=== PATIENT | male | born 1945 | race Caucasian/White ===

== ENCOUNTER → 2016-10-02 | Outpatient (CLI) | payer OTHER | LOC: BRMIMAGING 11:15 | PROVIDERS: ATTEND Surgery | DX: Z03.89 Encounter for observation for other suspected diseases and conditions ruled out (principal) | CPT/HCPCS: 76882-PO ==

== ENCOUNTER → 2017-09-24 | Outpatient (CLI) | payer OTHER | LOC: FIMAGING 10:37 → EDSTATUS 10:39 | PROVIDERS: ATTEND Internal Medicine | DX: Q74.2 Other congenital malformations of lower limb(s), including pelvic girdle (principal); M11.251 Other chondrocalcinosis, right hip; M11.252 Other chondrocalcinosis, left hip ==

== ENCOUNTER 2017-12-07 15:50 | Inpatient (IN) | payer OTHER ==
--- NOTE | 2017-12-07 16:13 | CPEKG ---
Heart Rate: 64 RR Interval: 938 P-R Interval: 172 QRSD Interval: 90 QT Interval: 412 QTC Interval: 425 P Dell: -9 QRS Dell: -1 T Wave Dell: 35 EKG Severity - NORMAL ECG - EKG Impression: SINUS RHYTHM Electronically Signed By: Dano Zimmerman 07-Dec-2017 17:48:14
[2017-12-07 16:15] LABS: PLATELET COUNT 160 10^3/uL (150-400)
[2017-12-07 16:24] LABS: INR 0.99 (0.83-1.16); PROTIME(PATIENT) 13.3 SEC (12.0-15.0)
--- NOTE | 2017-12-07 16:38 | EDPHY ---
H & P Stated Complaint: L hip pain Time Seen by Provider: 12/07/17 16:35 HPI/ROS: CHIEF COMPLAINT: Left hip pain HISTORY OF PRESENT ILLNESS: The patient presents to the ED with complaints of left hip pain and inability to ambulate since falling on his stairs prior to arrival. The patient reports prior history of a nonsurgical hip and pelvic fracture. The patient does have a history of Parkinson's disease and diabetes. The patient denies any associated head injury, neck pain or additional complaints. He is not anticoagulated. REVIEW OF SYSTEMS: A comprehensive 10 point review of systems is otherwise negative aside from elements mentioned in the history of present illness. Source: Patient Exam Limitations: No limitations - Personal History Current Tetanus/Diphtheria Vaccine: Unsure Current Tetanus Diphtheria and Acellular Pertussis (TDAP): Unsure - Medical/Surgical History Hx Asthma: No Hx Chronic Respiratory Disease: No Hx Diabetes: Yes Hx Cardiac Disease: No Hx Renal Disease: No Hx Cirrhosis: No Hx Alcoholism: No Hx HIV/AIDS: No Hx Splenectomy or Spleen Trauma: No Other PMH: R HIP/PELVIC FX, Diabetes Type 1, Parkensons, myasthenia gravis - Social History Smoking Status: Former smoker - Physical Exam Exam: General Appearance: Alert, no distress Head: Atraumatic Eyes: Pupils equal, round, reactive ENT, Mouth: No hemotympanum, no oral trauma Neck: Nontender, trachea midline Respiratory: No chest wall tender, subcutaneous air, lungs clear bilaterally Cardiovascular: Regular rate and rhythm Abdomen: Abdomen is soft and nontender, pelvis stable Skin: No lacerations, No abrasion Back: No midline T/L/S pain Extremities: Left hip shortened and externally rotated Neurological: A&Ox3, normal motor function, normal sensory exam Constitutional: Initial Vital Signs Temperature (C) 36.8 C 12/07/17 15:58 Heart Rate 64 12/07/17 15:58 Respiratory Rate 18 12/07/17 15:58 Blood Pressure 133/59 H 12/07/17 15:58 O2 Sat (%) 94 12/07/17 15:58 O2 Delivery Mode Room Air Allergies/Adverse Reactions: No Known Allergies Allergy (Verified 12/07/17 15:57) Home Medications: Medication Instructions Recorded Lantus 01/29/10 METFORMIN HCL 01/29/10 PRILOSEC 01/29/10 SIMVASTATIN 01/29/10 SYNTHROID 01/29/10 Matthew Mercedes U-100 09/26/15 Medical Decision Making - Diagnostics EKG Interpretation: EKG: Complete interpretation has been separately recorded in the [facility] archive. Summary impression: Sinus rhythm, rate 64 Imaging Results: Imaging Impressions Chest X-Ray 12/07/17 15:58 Impression: No evidence for fat embolism. 2. Left Hip Technique: AP pelvis and frog-leg left hip. Clinical Indications: Pain post fall down stairs Findings: There is an acute, complex, mildly displaced intertrochanteric fracture of the left hip. The distal femur is medially displaced by approximately 1 cm. There is no significant angulation. The femoral head remains normally located in the acetabulum. The included SI joints, pubic symphysis and right hip joint are intact. There is bilateral acetabular labral chondrocalcinosis. Impression: Complex intertrochanteric fracture. Hip X-Ray 12/07/17 15:58 Impression: No evidence for fat embolism. 2. Left Hip Technique: AP pelvis and frog-leg left hip. Clinical Indications: Pain post fall down stairs Findings: There is an acute, complex, mildly displaced intertrochanteric fracture of the left hip. The distal femur is medially displaced by approximately 1 cm. There is no significant angulation. The femoral head remains normally located in the acetabulum. The included SI joints, pubic symphysis and right hip joint are intact. There is bilateral acetabular labral chondrocalcinosis. Impression: Complex intertrochanteric fracture. ED Course/Re-evaluation: The patient presents to the ED for evaluation of left hip trauma following a mechanical fall. He arrives neurologically intact without evidence of a head or neck injury. The patient was taken for plain film of the left hip which demonstrates a intertrochanteric femur fracture. The patient had an IV established. He received IV morphine for pain control. Consultation was made with Dr. Chu Fuentes from Orthopedic surgery. Dr. Fuentes will discuss surgical treatment for the patient's fracture and consult on the patient. Consultation was made with Dr. Ramirez from the hospitalist service. The patient will be admitted to the Ortho med surg unit in anticipation of surgery tomorrow morning. I re-evaluated the patient at 5:00 p.m.. He is resting comfortably in the room. Differential Diagnosis: Differential diagnosis considered includes hip fracture, hip dislocation, pelvic fracture, neurovascular injury, head injury - Data Points Laboratory Results: Laboratory Results 12/07/17 16:10 12/07/17 16:10 12/07/17 12/07/17 12/07/17 16:10 16:10 16:10 WBC 6.21 10^3/uL 10^3/uL (3.80-9.50) RBC 3.98 10^6/uL L 10^6/uL (4.40-6.38) Hgb 14.0 g/dL g/dL (13.7-17.5) Hct 39.0 % L % (40.0-51.0) MCV 98.0 fL fL (81.5-99.8) MCH 35.2 pg H pg (27.9-34.1) MCHC 35.9 g/dL g/dL (32.4-36.7) RDW 13.2 % % (11.5-15.2) Plt Count 160 10^3/uL 10^3/uL (150-400) MPV 9.3 fL fL (8.7-11.7) Neut % (Auto) 80.0 % H % (39.3-74.2) Lymph % (Auto) 10.0 % L % (15.0-45.0) Osborne % (Auto) 7.6 % % (4.5-13.0) Eos % (Auto) 1.3 % % (0.6-7.6) Baso % (Auto) 0.8 % % (0.3-1.7) Nucleat RBC Rel Count 0.0 % % (0.0-0.2) Absolute Neuts (auto) 4.97 10^3/uL 10^3/uL (1.70-6.50) Absolute Lymphs (auto) 0.62 10^3/uL L 10^3/uL (1.00-3.00) Absolute Monos (auto) 0.47 10^3/uL 10^3/uL (0.30-0.80) Absolute Eos (auto) 0.08 10^3/uL 10^3/uL (0.03-0.40) Absolute Basos (auto) 0.05 10^3/uL 10^3/uL (0.02-0.10) Absolute Nucleated RBC 0.00 10^3/uL 10^3/uL (0-0.01) Immature Gran % 0.3 % % (0.0-1.1) Immature Gran # 0.02 10^3/uL 10^3/uL (0.00-0.10) PT 13.3 SEC SEC (12.0-15.0) INR 0.99 (0.83-1.16) Sodium 141 mEq/L mEq/L (135-145) Potassium 3.9 mEq/L mEq/L (3.5-5.2) Chloride 110 mEq/L mEq/L (97-110) Carbon Dioxide 24 mEq/l mEq/l (22-31) Anion Gap 7 mEq/L L mEq/L (8-16) BUN 17 mg/dL mg/dL (7-23) Creatinine 0.8 mg/dL mg/dL (0.7-1.3) Estimated GFR > 60 Glucose 101 mg/dL H mg/dL (70-100) Calcium 9.5 mg/dL mg/dL (8.5-10.4) Departure - Departure Disposition: [facility] Inpatient Acute Clinical Impression: Fracture, intertrochanteric, left femur, Myasthenia gravis Condition: Good Referrals: Patient,NotPresent [Primary Care Provider] - As per Instructions
[2017-12-07] MEDS ORDERED: LORazepam 2 MG/ML INJ IVP PRN (17:16)
[2017-12-07] MEDS ORDERED: PROMETHAZINE HCL 25 MG/ML INJ IVP PRN (17:16)
[2017-12-07] MEDS ORDERED: HYDROmorphone HCL/NS 0.5 MG/ML SYR IVP PRN (17:16)
[2017-12-07] MEDS ORDERED: D50W 25 GM/50 ML VIAL IVP PRN (17:24)
[2017-12-07] MEDS ORDERED: NS 1,000 ML IV SCH (17:30)
[2017-12-07] MEDS: HYDROCODONE/APAP 5/325 TAB PO PRN ×2 (18:36→22:52)
[2017-12-07] MEDS: INSULIN LISPRO 100 UNIT/ML SC SCH (18:37)
[2017-12-07] MEDS: metFORMIN HCL 500 MG TAB PO SCH (18:37)
--- NOTE | 2017-12-07 20:46 | GCON ---
[f rep st] CONSULTATION CHIEF COMPLAINT: Left hip pain. HISTORY OF PRESENT ILLNESS: The patient is a 72-year-old gentleman who presented to the emergency de partment with complaints of left hip pain and inability to ambulate. He fell on his basement stairs, does not recall the exact events of what happened. He denied any loss of consciousness or striking his head. He does have a history of type 1 diabetes, and recent diagnosis of Parkinson disease. He has no other focal complaints. He does not take any anticoagulation. PAST MEDICAL HISTORY: Type 1 diabetes, myasthenia gravis, and Parkinson disease. He also has histor y of a previous pelvic fracture to his right hip. PAST SURGICAL HISTORY: None. MEDICATIONS: He takes Lantus, metformin, Prilosec, simvastatin. ALLERGIES: No known drug allergies. SOCIAL HISTORY: Denies any tobacco or alcohol use. REVIEW OF SYSTEMS: Negative for current chest pain, shortness of breath, belly pain, back pain, numb ness, tingling. He does have positive review for left knee pain. He denies any foot or ankle or low er extremity pain. PHYSICAL EXAMINATION: GENERAL: This is a healthy gentleman who is pleasant and cooperative with exa mination. HEENT: Normocephalic, atraumatic. Focused examination of the left lower extremity reveal s this to be short and externally rotated. No range of motion is assessed at either the hip or knee currently. He has no tenderness to the calf and lower extremities. Intact plantar flexion, dorsifle xion, EHL function. Sensation is intact to light touch throughout both lower extremities. RADIOGRAPHS: AP lateral of his pelvis and left hip demonstrate an intertrochanteric femur fracture w hich is comminuted with a short oblique segment. There is displacement of approximately 1 cm. He darden s very vertically oriented hips bilaterally. There is no other mass or lesions noted. IMPRESSION: Left intertrochanteric femur fracture. TREATMENT PLAN: I have outlined the surgical procedure, risks, benefits, and alternatives at length. He understands this and wishes to proceed. Written consent will be signed and placed in patient's chart. I have outlined that he will be touchdown weightbearing for approximately 2 weeks, then 50% w eightbearing restrictions until bony union. He does have some questions regarding his insurance. I have referred him to the brand planner for discussion of this in the morning. /[id number]/MODL
--- NOTE | 2017-12-07 20:56 | GHP ---
[f rep st] HISTORY AND PHYSICAL DATE OF ADMISSION: 12/07/2017 CHIEF COMPLAINT: Left hip pain and left hip fracture. HISTORY OF PRESENT ILLNESS: The patient is a pleasant gentleman with a past medical history of myast henia gravis, currently treated with azathioprine, and recent diagnosis of Parkinson disease, yet to start on medical therapy, who presented to the [facility] Emergency Room via EMS on 0 12/07/2017 after sustaining a fall at home onto his left hip. He was unable to get up after the fall and EMS was activated and came to the home and brought him to the emergency room where he was found t o have a fracture of the left hip on x-ray. Orthopedic Surgery was consulted and the tentative plan is for surgery tomorrow morning. The patient states he did not have any syncopal episodes at the fal l, he simply lost his footing and fell down onto the left hip. Over the prior months, he has not not iced any shortness of breath or chest pain symptoms. He has no prior history of cardiac or lung dise ase. His initial ECG was unremarkable. His hemoglobin was within normal limits at 14 and creatinine was normal at 0.8. PAST MEDICAL HISTORY: 1. Parkinson disease. 2. Myasthenia gravis. 3. Diabetes mellitus type 2. 4. Hyperlipidemia. 5. Hypothyroidism. PAST SURGICAL HISTORY: 1. Hernia repair. 2. Ankle surgery. MEDICATIONS: This medication list is taken from a list provided by the patient's . 1. Lantus 15 units twice a day. 2. Humalog sliding scale. 3. Metformin 500 mg twice a day. 4. Flomax 0.4 mg nightly. 5. Simvastatin 40 mg daily. 6. Omeprazole 40 mg daily. 7. Levothyroxine 0.15 mg daily. 8. Myrbetriq 25 mg daily. 9. Azathioprine 50 mg 3 times a day. 10. Aspirin 325 mg daily. ALLERGIES: No known drug allergies. FAMILY HISTORY: Mother and father are both . Father in his 90s secondary to complicati ons from Alzheimer dementia. Mother in her 90s as well due to congestive heart failure. SOCIAL HISTORY: Patient is a nonsmoker. He is . They have 1 daughter. personnel records clerk or po wer of state attorney would be his or daughter, if unavailable. CODE STATUS: Reviewed and patient is a full code status. REVIEW OF SYSTEMS: CONSTITUTIONAL: No complaints of any fevers or chills. ENT: No recent upper re spiratory illnesses. CARDIOVASCULAR: No complaints of recent chest pain, syncopal episodes, or palp itations. RESPIRATORY: No complaints of shortness of breath or productive cough. GI: No nausea or vomiting. No diarrhea, constipation, or focal abdominal pain. : No report of any difficulty wit h urination. NEUROLOGIC: No complaints of headaches or focal weakness. Recent diagnosis of [place] on disease. HEMATOLOGIC: No history of any deep vein thrombosis or pulmonary embolism. PSYCHIATRIC : No history of anxiety or depression. ENDOCRINE: Positive for diabetes and hypothyroidism. SKIN: No concerning skin rashes. MUSCULOSKELETAL: No focal joint pains other than the left hip. PHYSICAL EXAM: VITAL SIGNS: Temperature 36.8, blood pressure 133/59, heart rate 64, respirations 18 , saturating 94% on room air. GENERAL: Patient is awake, alert, conversant, no acute distress. SEVERO NT: Extraocular movements intact. Pupils equal. No scleral icterus is noted. Mohamud facies apprecia dada. NECK: Supple. No adenopathy. No thyroid enlargement noted. CHEST: Clear to auscultation. Normal respiratory effort. HEART: Regular rate and rhythm. No murmurs. ABDOMEN: Soft, nontender, nondistended. : No Hussein catheter in place. EXTREMITIES: No significant pitting edema. NEUROL OGIC: Cranial nerves 2-12 appear grossly intact. No significant rigidity appreciated. Strength 5/5 in upper extremities. Lower extremity strength testing limited by left fracture. LABORATORY DATA: White blood cell count 6, hemoglobin 14, platelets 160. Sodium 140, potassium 3.9, chloride 110, bicarb 24, BUN 17, creatinine 0.8, glucose of 101. INR 0.199. IMAGING: Chest x-ray showed no acute cardiopulmonary disease. There was no evidence of fat emboli p resent. ASSESSMENT/PLAN: 1. Left hip pain, currently reasonably well controlled in the emergency room, but he is noting some pain starting to develop. I have orders for as needed hydrocodone as well as IV Dilaudid for pain co ntrol overnight. 2. Left hip fracture. Tentatively planning for surgery tomorrow morning. His electrocardiogram is without concerning finding. His hemoglobin is within normal limits as well as his creatinine. There have been no symptoms over the prior months suggestive of active cardiopulmonary disease so I recomm end proceeding to the OR as scheduled tomorrow. I have made him n.p.o. after midnight and will hold any heparin past midnight as well. Dr. Fuentes has been consulted by the emergency room for orthopedi c consultation. 3. Myasthenia gravis. Will continue with current azathioprine at 50 mg 3 times a day. The patient' s states that he was last treated with prednisone approximately year and half ago. I do not thi nk stress dose steroids are indicated at this time considering it has been a year and a half since hi s last dose of prednisone, but if hypotension develops, consider starting stress dose steroids for 2 to 3 days. 4. Parkinson disease. The patient has upcoming neurologic consultation to discuss medical therapy. 5. Diabetes mellitus type 2. I will reduce his Lantus dosing to 10 units twice a day, continue with Humalog sliding scale at low intensity dosing. 6. Hyperlipidemia. Will anticipate continuing statin therapy. 7. Hypothyroidism. Continue levothyroxine 0.15 mg daily. 8. Benign prostatic hypertrophy. Continue Flomax 0.4 mg daily. 9. Deep venous thrombosis prophylaxis. We will anticipate Lovenox once hemostasis postoperatively. 10. Disposition: I will admit him under inpatient status. /[id number]/MODL
[2017-12-07] MEDS: INSULIN GLARGINE 100 UNITS/ML UNIT SC SCH (21:39)
[2017-12-07] MEDS: MULTIVITAMINS 1 EACH TAB PO SCH (21:40)
[2017-12-07] MEDS: CALCIUM CARB W/VIT D 500 MG TAB PO SCH (21:40)
[2017-12-07] MEDS: azaTHIOprine 50 MG TAB PO SCH (21:40)
[2017-12-07] MEDS: OMEGA-3 FATTY ACIDS 1,000 MG CAP PO SCH (21:40)
[2017-12-07] MEDS ORDERED: HEPARIN 5,000 UNIT/0.5 ML SYR SC SCH (22:00)
[2017-12-08] MEDS: LEVOTHYROXINE 150 MCG TAB PO SCH (05:18)
[2017-12-08 05:38] LABS: PLATELET COUNT 135 10^3/uL (150-400)
[2017-12-08 05:43] LABS: INR 1.06 (0.83-1.16)
[2017-12-08] MEDS: metFORMIN HCL 500 MG TAB PO SCH ×2 (08:30→20:44)
[2017-12-08] MEDS: TAMSULOSIN HCL 0.4 MG CAP PO SCH (08:30)
[2017-12-08] MEDS: ATORVASTATIN CALCIUM 20 MG TAB PO SCH (08:30)
[2017-12-08] MEDS: HYDROCODONE/APAP 5/325 TAB PO PRN ×3 (08:30→21:57)
[2017-12-08] MEDS: PANTOPRAZOLE SODIUM 40 MG TAB PO SCH (08:30)
[2017-12-08] MEDS: INSULIN LISPRO 100 UNIT/ML SC SCH ×3 (08:31→20:43)
[2017-12-08] MEDS: azaTHIOprine 50 MG TAB PO SCH ×3 (08:31→21:50)
[2017-12-08] MEDS: INSULIN GLARGINE 100 UNITS/ML UNIT SC SCH ×2 (08:32→21:56)
[2017-12-08] MEDS: NON-FORMULARY NEW DRUG (Mirabegron [Myrbetriq] 25 MG) PO SCH (08:33)
[2017-12-08] MEDS ORDERED: Herbals/Supplements -Info Only PO SCH (09:00)
[2017-12-08] MEDS ORDERED: PANTOPRAZOLE SODIUM 40 MG TAB PO SCH (09:00)
[2017-12-08] MEDS ORDERED: ceFAZolin 2 GM/SWFI 2 GM/20 ML SYR IVP ONE (14:00)
[2017-12-08] MEDS ORDERED: ceFAZolin 2 GM/DEXTROSE 100 ML IV ONE (14:00)
--- NOTE | 2017-12-08 14:23 | HOSPPROG ---
Hospitalist Progress Note Assessment/Plan: Subjective Follow-up on left hip pain No acute events overnight. Patient states his pain has been reasonably well controlled. He can tell however when the pain medication is wearing off. The tentative plan is for surgery this afternoon. Objective Vital signs as detailed below Physical exam General-patient awake alert conversant no acute distress. Cardiac-regular rate and rhythm no murmurs appreciated Lungs-clear auscultation with normal respiratory effort. Abdomen-soft nontender nondistended. -no Hussein catheter in place Extremities-no significant pitting edema Musculoskeletal-no calf pain with palpation Labs as detailed below Assessment and plan 1. Left hip pain-his pain appears reasonably well controlled with the current hydrocodone and acetaminophen as well as IV fentanyl as needed. I will go ahead and start a bowel regimen anticipating that he for narcotic medications after surgery and potential for constipation. 2. Left hip fracture-tentative plan is for surgery this afternoon. 3. Diabetes mellitus type 2- continue current metformin and Lantus insulin along with sliding scale. I reduced his Lantus from 15 units twice a day to 10 units twice a day here in the hospital. 4. Hyperlipidemia-patient is on simvastatin at home. We replaced this with atorvastatin here in the hospital. 5. Hypothyroidism-continue current levothyroxine dosing. 6. Parkinson's disease-patient reports that he was recently diagnosed with Parkinson's disease. He is not started on medical therapy yet. He does have upcoming followup consultation with Dr. Efren Matthews to discuss medical therapy. 7. Myasthenia gravis-continue with current as a fibrin. 8. DVT prophylaxis-anticipate starting after hemostasis after surgery. 9. Disposition- PT and OT consult placed. Will see how he does postoperatively and look at placement options with the case management. Objective: Vital Signs Temp Pulse Resp BP Pulse Ox 36.9 C 61 16 112/61 94 12/08/17 11:36 12/08/17 11:36 12/08/17 11:36 12/08/17 11:36 12/08/17 11:36 Laboratory Results 12/08/17 05:23 12/08/17 05:23 12/07/17 12/08/17 12/09/17 05:59 05:59 05:59 Intake Total 1225 Output Total 750 1200 Balance 475 -1200 PT 14.0 SEC (12.0-15.0) 12/08/17 05:23 INR 1.06 (0.83-1.16) 12/08/17 05:23 ICD10 Worksheet Patient Problems: Problems Problem Status Onset Fracture, intertrochanteric, left femur Acute Myasthenia gravis Acute
--- NOTE | 2017-12-08 15:09 | ASMTCMCOM ---
CM Note CM Note Notes: Chart reviewed. 72 tear old male s/p femur fracture had surgery pending at 1pm. The had called insurance [employer] who told her that the surgeon was not covered under plan despite an emergent admission and fracture, Call placed to Dr. Fuentes and our insurance financial services Angela. Per Angela likely to be covered under emergent care. Patient's recalled insurance for verification purposes and was told again that they would need to find an in network provider or be faced with payment . Our research and development director spent nearly 2 hours on the phone with insurance [employer] ([employer]) to ascertain coverage. Per Tiffanie Waldron It Communications Manager of escalation cases stated due to the nature of the emergency that they will provide coverage as if the services were in network regardless of where the patient is located. The patient's Erika is greatly relieved. Dr. Fuentes notified of this information and will proceed with emergent surgical intervention within the hour. This CM had also placed a call to [facility] on behalf of the to present the possibility of need for other orthopedic service and Wilfredo Briscoe responded. He asked that Dr. Fuentes page him if we were unable to find resolution to conflict. CM to follow. Plan: Needs to be determined Date Signed: 12/08/2017 03:08 PM Electronically Signed By:Emily Barraza RN
[2017-12-08] MEDS ORDERED: BUPIVACAINE/EPI 0.5% 30 ML SDV ONE ×2 (16:05→16:26)
--- NOTE | 2017-12-08 16:07 | ASMTCMCOM ---
CM Note CM Note Notes: Spoke with Cary in OR to clarify questions r/t insurance issues. Informed her of information contained in previous note. She is to relay all pertinent information to Dr. Fuentes who has now scheduled patient's surgery for 5:30 pm. CM to follow. Date Signed: 12/08/2017 04:06 PM Electronically Signed By:Emily Barraza RN
[2017-12-08] MEDS ORDERED: LR 1,000 ML IV ONE (16:15)
[2017-12-08] MEDS ORDERED: ceFAZolin 2 GM/SWFI 20 ML SYR IVP ONE (16:39)
--- NOTE | 2017-12-08 17:09 | PDANEPAE ---
ANE History of Present Illness left it hip frx ANE Past Medical History - Cardiovascular History Hx Hypertension: No Hx Arrhythmias: No Hx Chest Pain: No Hx Coronary Artery / Peripheral Vascular Disease: No Hx CHF / Valvular Disease: No Hx Palpitations: No - Pulmonary History Hx COPD: No Hx Asthma/Reactive Airway Disease: No Hx Recent Upper Respiratory Infection: No Hx Oxygen in Use at Home: No Hx Sleep Apnea: No Sleep Apnea Screening Result - Last Documented: Negative - Endocrine History Hx Diabetes: Yes Hypothyroid: Yes Hyperthyroid: No Obesity: no - Renal History Hx Renal Disorders: No - Liver History Hx Hepatic Disorders: No - Neurological & Psychiatric Hx Neurological / Psychiatric History Comment: myasthenia gravis in remission x 3 yrs - Chronic Pain History Chronic Pain: No ANE Review of Systems Review of systems is: negative Review of Systems: - Exercise capacity Exercise capacity: >=4 METS ANE Patient History - Allergies Allergies/Adverse Reactions: No Known Allergies Allergy (Verified 12/07/17 15:57) - Home Medications Home Medications: Aspirin EC [Aspirin EC 81 mg (*)] 81 mg PO DAILY 12/07/17 [Last Taken 12/07/17] Calcium Carb W/Vit D [Calcium Carb W/Vit D 500/200 (*)] 500 mg PO HS 12/07/17 [ Last Taken 12/06/17] Herbals/Supplements -Info Only 1 ea PO DAILY 12/07/17 [Last Taken Unknown] Insulin Glargine [Lantus 100 UNITS/ML (*)] 15 units SC BID 12/07/17 [Last Taken 12/07/17 09:00] Insulin Lispro [Humalog] 0 unit SQ TIDMEAL 12/07/17 [Last Taken 12/07/17] Levothyroxine [Synthroid 150 mcg (*)] 150 mcg PO DAILY@07 12/07/17 [Last Taken 12/07/17] Mirabegron [Myrbetriq] 25 mg PO DAILY 12/07/17 [Last Taken 12/07/17] Multivitamins [Multivitamin (*)] 1 each PO HS 12/07/17 [Last Taken 12/06/17] Fertile-3 Fatty Acids [Fish Oil 1000 mg (*)] 1,000 mg PO HS 12/07/17 [Last Taken 12/06/17] Omeprazole Magnesium 20 mg PO BID 12/07/17 [Last Taken 12/07/17 09:00] Simvastatin [Zocor] 40 mg PO DAILY 12/07/17 [Last Taken 12/07/17] Tamsulosin HCl [Flomax 0.4 MG (*)] 0.4 mg PO DAILY@1830 12/07/17 [Last Taken ] azaTHIOprine [Imuran 50 mg (*)] 150 mg PO DAILY 12/07/17 [Last Taken 12/07/17] metFORMIN HCL [Glucophage 500 mg (*)] 500 mg PO BIDMEAL 12/07/17 [Last Taken 09:00] - NPO status NPO Status: no food or drink >8 hours NPO Since - Liquids (Date): 12/08/17 NPO Since - Liquids (Time): 00:00 NPO Since - Solids (Date): 12/08/17 NPO Since - Solids (Time): 00:00 - Anes Hx Anes Hx: no prior problems - Smoking Hx Smoking Status: Former smoker - Alcohol Use Alcohol Use: None - Family Anes Hx Family Anes Hx: none ANE Labs/Vital Signs - Labs Result Diagrams: 12/08/17 05:23 12/08/17 05:23 - Vital Signs Vital Signs: reviewed preoperatively; see RN documention for details Blood Pressure: 126/64 Heart Rate: 65 Respiratory Rate: 16 O2 Sat (%): 94 Height: 172.72 cm Weight: 72.575 kg ANE Physical Exam - Airway Neck exam: FROM Mallampati Score: Class 1 Mouth exam: normal dental/mouth exam - Pulmonary Pulmonary: no respiratory distress - Cardiovascular Cardiovascular: regular rate and rhythym - ASA Status ASA Status: III ANE Anesthesia Plan Anesthesia Plan: GA w LMA
[2017-12-08] MEDS ORDERED: PROPOFOL 200 MG/20 ML VIAL ONE ×2 (17:23→18:07)
[2017-12-08] MEDS ORDERED: LIDOCAINE 2% 5 ML SDV ONE (17:23)
[2017-12-08] MEDS ORDERED: fentaNYL 100 MCG/2 ML INJ ONE ×4 (17:23→19:24)
[2017-12-08] MEDS ORDERED: DEXAMETHASONE 4 MG/ML VIAL ONE (17:33)
[2017-12-08] MEDS ORDERED: ONDANSETRON 4 MG/2 ML VIAL ONE (17:33)
[2017-12-08] MEDS ORDERED: PHENYLEPHRINE HCL 100 MCG/ML SYR ONE (18:18)
[2017-12-08] MEDS ORDERED: oxyCODONE IR 5 MG TAB PO PRN (18:42)
[2017-12-08] MEDS ORDERED: ONDANSETRON 4 MG/2 ML VIAL IVP PRN (18:42)
[2017-12-08] MEDS ORDERED: MEPERIDINE 25 MG/ML SYR IVP PRN (18:42)
[2017-12-08] MEDS ORDERED: NALOXONE HCL 0.4 MG/ML INJ IVP PRN (18:42)
[2017-12-08] MEDS ORDERED: ALBUTEROL 3 ML DEYVIAL IH PRN (18:42)
[2017-12-08] MEDS ORDERED: DIAZEPAM 5 MG/ML 1 ML SYR IVP PRN (18:42)
[2017-12-08] MEDS ORDERED: HYDROmorphONE/DILAUDID 2 MG/ML INJ IVP PRN (18:42)
--- NOTE | 2017-12-08 18:44 | POSTANESTH ---
Post Anesthetic Evaluation Cardiovascular Status: Normal, Stable Respiratory Status: Normal, Stable Level of Consciousness/Mental Status: Can Participate in Eval Pain Control: Adequate, Prn Tx Ordered Nausea/Vomiting Control: Adequate, Prn Tx Ordered Complications Possibly Related to Anesthesia: None Noted
[2017-12-08] MEDS: fentaNYL 100 MCG/2 ML INJ IVP PRN ×2 (19:25→19:33)
[2017-12-08] MEDS ORDERED: HYDROmorphONE/DILAUDID 2 MG/ML INJ ONE (19:43)
[2017-12-08] MEDS: CALCIUM CARB W/VIT D 500 MG TAB PO SCH (21:50)
[2017-12-08] MEDS: ceFAZolin 2 GM/SWFI 2 GM/20 ML SYR IVP SCH (21:51)
[2017-12-08] MEDS: MULTIVITAMINS 1 EACH TAB PO SCH (21:52)
[2017-12-08] MEDS: OMEGA-3 FATTY ACIDS 1,000 MG CAP PO SCH (21:53)
[2017-12-09 05:25] LABS: PLATELET COUNT 127 10^3/uL (150-400)
[2017-12-09] MEDS: HYDROCODONE/APAP 5/325 TAB PO PRN ×3 (06:02→19:05)
[2017-12-09] MEDS: ceFAZolin 2 GM/SWFI 2 GM/20 ML SYR IVP SCH (06:02)
[2017-12-09] MEDS: LEVOTHYROXINE 150 MCG TAB PO SCH (06:02)
--- NOTE | 2017-12-09 07:43 | SOAPPROG ---
SOAP Progress Note Assessment/Plan: Assessment: s/p im nail for left intertroch fx Plan:mobilize with pt/ot dvt precautions, ok to anticoagulate may need snf TDWB only, rom as asya xrays with mild displacement at fx site 12/09/17 07:41 Subjective: min pain no cp or sob asya po Objective: Vital Signs Temp Pulse Resp BP Pulse Ox 36.3 C 73 17 121/54 H 97 12/09/17 04:00 12/09/17 04:00 12/09/17 04:00 12/09/17 04:00 12/09/17 04:00 Laboratory Results 12/09/17 04:52 12/09/17 04:52 12/08/17 12/09/17 12/10/17 05:59 05:59 05:59 Intake Total 1225 2050 Output Total 750 3100 200 Balance 475 -1050 -200 PT 14.0 SEC (12.0-15.0) 12/08/17 05:23 INR 1.06 (0.83-1.16) 12/08/17 05:23 dressing intact intact pf,df,ehl toes warm and pink neg homans marjorie ICD10 Worksheet Patient Problems: Problems Problem Status Onset Fracture, intertrochanteric, left femur Acute Myasthenia gravis Acute
[2017-12-09] MEDS: INSULIN GLARGINE 100 UNITS/ML UNIT SC SCH (08:23)
[2017-12-09] MEDS: PANTOPRAZOLE SODIUM 40 MG TAB PO SCH (08:23)
[2017-12-09] MEDS: metFORMIN HCL 500 MG TAB PO SCH ×2 (08:24→18:15)
[2017-12-09] MEDS: TAMSULOSIN HCL 0.4 MG CAP PO SCH (08:24)
[2017-12-09] MEDS: azaTHIOprine 50 MG TAB PO SCH ×3 (08:24→21:43)
[2017-12-09] MEDS: INSULIN LISPRO 100 UNIT/ML SC SCH ×2 (08:24→12:34)
[2017-12-09] MEDS: ATORVASTATIN CALCIUM 20 MG TAB PO SCH (08:24)
[2017-12-09] MEDS: NON-FORMULARY NEW DRUG (Mirabegron [Myrbetriq] 25 MG) PO SCH (08:25)
[2017-12-09] MEDS: POLYETHYLENE GLYCOL 3350 17 GM PKT PO SCH (08:25)
[2017-12-09] MEDS ORDERED: INSULIN GLARGINE 100 UNITS/ML UNIT SC SCH (12:00)
[2017-12-09] MEDS ORDERED: D50W 25 GM/50 ML SYR IVP PRN (12:01)
[2017-12-09] MEDS ORDERED: INSULIN GLARGINE 100 UNITS/ML UNIT SC ONE (12:05)
--- NOTE | 2017-12-09 12:56 | HOSPPROG ---
Hospitalist Progress Note Assessment/Plan: Left hip fracture - s/p surgical repair by Dr. Fuentes, POD #1 -pain control -PT/OT, TDWB -further post-op care per ortho DM type 2 - bg >300 this am -increase back to 15 bid lantus and increase SSI Myasthenia gravis - cont home azathioprine Hypothyroidism - cont synthroid Hyperlipidemia - cont statin Parkinson's - outpt neurology f/u is planned Full code Dispo - cont inpt for acute PT/OT, further management of acute hip fracture Subjective: Pt doing well. Up in chair. Pain controlled. Eating and drinking well. Hasn't ambulated much. No fevers, chills, CP, SOB Objective: Vital Signs Temp Pulse Resp BP Pulse Ox 36.6 C 78 16 111/57 L 95 12/09/17 12:00 12/09/17 12:00 12/09/17 12:00 12/09/17 12:00 12/09/17 12:00 Laboratory Results 12/09/17 04:52 12/09/17 04:52 12/08/17 12/09/17 12/10/17 05:59 05:59 05:59 Intake Total 1225 2050 Output Total 750 3100 400 Balance 475 -1050 -400 PT 14.0 SEC (12.0-15.0) 12/08/17 05:23 INR 1.06 (0.83-1.16) 12/08/17 05:23 - Physical Exam Constitutional: no apparent distress Eyes: PERRL Ears, Nose, Mouth, Throat: moist mucous membranes Cardiovascular: regular rate and rhythym Respiratory: no respiratory distress, clear to auscultation Gastrointestinal: normoactive bowel sounds, soft, non-tender abdomen Skin: warm Musculoskeletal: full muscle strength Neurologic: AAOx3 Psychiatric: interacting appropriately ICD10 Worksheet Patient Problems: Problems Problem Status Onset Fracture, intertrochanteric, left femur Acute Myasthenia gravis Acute
[2017-12-09] MEDS: ENOXAPARIN 40 MG/0.4 ML SYR SC SCH (13:06)
--- NOTE | 2017-12-09 15:43 | ASMTCMCOM ---
CM Note CM Note Notes: PT rec HHC and 24 hr supervision. Pt reports his will be able to provide supervision and does not know if he wants HHC. Pt will discuss with and CM to meet with pt tomorrow. Date Signed: 12/09/2017 03:42 PM Electronically Signed By:AMANDA Flowers
[2017-12-09] MEDS: oxyCODONE IR 5 MG TAB PO PRN ×2 (16:33→21:45)
[2017-12-09] MEDS ORDERED: INSULIN LISPRO 100 UNIT/ML SC SCH (18:00)
[2017-12-09] MEDS: CALCIUM CARB W/VIT D 500 MG TAB PO SCH (21:43)
[2017-12-09] MEDS: OMEGA-3 FATTY ACIDS 1,000 MG CAP PO SCH (21:45)
[2017-12-09] MEDS: MULTIVITAMINS 1 EACH TAB PO SCH (21:45)
[2017-12-10] MEDS: LEVOTHYROXINE 150 MCG TAB PO SCH (04:58)
[2017-12-10] MEDS: oxyCODONE IR 5 MG TAB PO PRN ×4 (04:58→18:34)
--- NOTE | 2017-12-10 06:56 | SOAPPROG ---
SOAP Progress Note Assessment/Plan: Assessment: s/p im nail for left intertroch fx Plan:mobilize with pt/ot dvt precautions, ok to anticoagulate may need snf TDWB only, rom as asya xrays with mild displacement at fx site will obtain new xrays of femur and knee 12/09/17 07:41 12/10/17 06:51 Subjective: acute episode of knee pain yesterday no pain currently no other complaints Objective: Vital Signs Temp Pulse Resp BP Pulse Ox 36.8 C 73 16 115/60 95 12/10/17 04:00 12/10/17 04:00 12/10/17 04:00 12/10/17 04:00 12/10/17 04:00 Laboratory Results 12/10/17 04:25 12/09/17 04:52 12/09/17 12/10/17 12/11/17 05:59 05:59 05:59 Intake Total 2050 500 Output Total 3100 1000 Balance -1050 -500 PT 14.0 SEC (12.0-15.0) 12/08/17 05:23 INR 1.06 (0.83-1.16) 12/08/17 05:23 dressing intact intact active knee flex and ext with minimal pain, minimal rom performed intact pf,df,ehl neg homans marjorie no knee effusion ICD10 Worksheet Patient Problems: Problems Problem Status Onset Fracture, intertrochanteric, left femur Acute Myasthenia gravis Acute
[2017-12-10] MEDS ORDERED: INSULIN LISPRO 100 UNIT/ML SC SCH (08:00)
[2017-12-10] MEDS: ENOXAPARIN 40 MG/0.4 ML SYR SC SCH (08:15)
[2017-12-10] MEDS: PANTOPRAZOLE SODIUM 40 MG TAB PO SCH (08:16)
[2017-12-10] MEDS: metFORMIN HCL 500 MG TAB PO SCH ×2 (08:16→18:33)
[2017-12-10] MEDS: TAMSULOSIN HCL 0.4 MG CAP PO SCH (08:17)
[2017-12-10] MEDS: ATORVASTATIN CALCIUM 20 MG TAB PO SCH (08:17)
[2017-12-10] MEDS: azaTHIOprine 50 MG TAB PO SCH ×3 (08:17→21:34)
[2017-12-10] MEDS: POLYETHYLENE GLYCOL 3350 17 GM PKT PO SCH (08:18)
[2017-12-10] MEDS: SENNOSIDES 1 TAB PO PRN (08:18)
[2017-12-10] MEDS: INSULIN LISPRO 100 UNIT/ML SC SCH ×4 (09:38→22:02)
[2017-12-10] MEDS: INSULIN GLARGINE 100 UNITS/ML UNIT SC SCH ×2 (09:39→21:34)
[2017-12-10] MEDS: NON-FORMULARY NEW DRUG (Mirabegron [Myrbetriq] 25 MG) PO SCH (09:40)
[2017-12-10] MEDS: ACETAMINOPHEN 325 MG TAB PO PRN ×2 (09:45→15:42)
--- NOTE | 2017-12-10 11:27 | HOSPPROG ---
Hospitalist Progress Note Assessment/Plan: Left hip fracture - s/p surgical repair by Dr. Fuentes, POD #2 -pain control -PT/OT, TDWB -further post-op care per ortho DM type 2 - bg's still elevated -increase lantus to 18 u bid, increase SSI Myasthenia gravis - cont home azathioprine Hypothyroidism - cont synthroid Hyperlipidemia - cont statin Parkinson's - outpt neurology f/u is planned Full code DVT PPLX - Lovenox Dispo - cont inpt for acute PT/OT, further management of acute hip fracture Subjective: Pt doing well. Has concerns about knee pain since surgery. No CP or SOB. EAting well. No fevers/ Objective: Vital Signs Temp Pulse Resp BP Pulse Ox 37.1 C 71 16 110/55 L 96 12/10/17 07:32 12/10/17 07:32 12/10/17 07:32 12/10/17 07:32 12/10/17 07:32 Laboratory Results 12/10/17 04:25 12/09/17 04:52 12/09/17 12/10/17 12/11/17 05:59 05:59 05:59 Intake Total 2050 500 Output Total 3100 1000 500 Balance -1050 -500 -500 PT 14.0 SEC (12.0-15.0) 12/08/17 05:23 INR 1.06 (0.83-1.16) 12/08/17 05:23 - Physical Exam Constitutional: no apparent distress Eyes: PERRL Ears, Nose, Mouth, Throat: moist mucous membranes Cardiovascular: regular rate and rhythym Respiratory: no respiratory distress Gastrointestinal: normoactive bowel sounds, soft, non-tender abdomen Skin: warm Musculoskeletal: full muscle strength Neurologic: AAOx3 Psychiatric: interacting appropriately ICD10 Worksheet Patient Problems: Problems Problem Status Onset Fracture, intertrochanteric, left femur Acute Myasthenia gravis Acute
--- NOTE | 2017-12-10 14:23 | ASMTCMCOM ---
CM Note CM Note Notes: Today PT rec SNF, spoke w pt and who are agreeable and interested in at least seeing who has bed availability. Referrals sent to [facility] and [facility] per pt request. CM to follow. Date Signed: 12/10/2017 02:23 PM Electronically Signed By:AMANDA Flowers
[2017-12-10] MEDS: OMEGA-3 FATTY ACIDS 1,000 MG CAP PO SCH (21:34)
[2017-12-10] MEDS: MULTIVITAMINS 1 EACH TAB PO SCH (21:34)
[2017-12-10] MEDS: CALCIUM CARB W/VIT D 500 MG TAB PO SCH (21:34)
[2017-12-11] MEDS: oxyCODONE IR 5 MG TAB PO PRN ×4 (00:31→16:38)
[2017-12-11] MEDS: LEVOTHYROXINE 150 MCG TAB PO SCH (06:01)
--- NOTE | 2017-12-11 07:43 | GOP ---
[f rep st] OPERATIVE REPORT DATE OF OPERATION: 12/08/2017 SURGEON: Chu Fuentes MD GRANTS ASSISTANT: Domenic Barrios, SUPERVISOR [employer], [facility], who was a medical necessity for the entirety of the case. PREOPERATIVE DIAGNOSIS: Left intertrochanteric femur fracture-closed. POSTOPERATIVE DIAGNOSIS: Left intertrochanteric femur fracture-closed. PROCEDURE PERFORMED: Open reduction, internal fixation, left intertrochanteric femur fracture with i ntramedullary implant. FINDINGS: INDICATIONS: The patient is a 72-year-old gentleman who sustained an injury to his left leg. He fel l and sustained a fracture to his left hip. He is admitted to the hospitalist's service for medical management. X-rays demonstrated a short oblique intertrochanteric fracture with comminution extendin g into the greater trochanter. Given the fracture instability and pattern, I have recommended surgic al stabilization. I have outlined the surgical procedure, risks, benefits, and alternatives. He wis hed to proceed. Written consent was signed and placed in the patient's chart. DESCRIPTION OF PROCEDURE: The patient was identified in the preanesthesia area. The left hip clearl y demarcated as operative site with an indelible marker. He was given 2 g of Ancef intravenously en route to the operative suite. In the OR, general endotracheal anesthesia was administered. Attentio n was turned to the left hip, which was sterilely prepped and draped in usual fashion. He had been p ositioned on the fracture table with appropriately padded perineal post and well-padded right depende nt leg castellanos. Intraoperative fluoroscopy was utilized to reduce the fracture to an anatomic positio n. A shower curtain drape was utilized. Appropriate time-out procedure was carried out. Two incisi ons were made across the lateral aspect of the femur, 1 proximal to the greater trochanter. Guidewir e was advanced in a central position of the greater trochanter into the femoral shaft. This was conf irmed on both AP and lateral views and the proximal canal opened. A guidewire was advanced to a cent ral portion within the knee. Reaming was carried out, and ultimately a size 11 x 400 mm long TFN frank l was then placed to the appropriate position. The lateral sideplate was affixed and a separate inci giancarlo was made. The guide trocar was then placed. A pin was placed into the central aspect of the fe moral head and neck. The lateral cortex was reamed and a 90 mm femoral head screw was impacted. Thi s was locked dynamically through the proximal opening of the TFN nail. No distal interlocking screw was placed. The handle was removed. Intraoperative x-rays confirmed appropriate positioning of the implant and the wounds were irrigated, closed in layers using 2-0 Monocryl and prateek. The margins were instilled with 50% Marcaine with epinephrine and sterile dressings were applied. The legs were taken down. They had appropriate range of motion, and symmetry was achieved with internal external r otation of both hips. Leg lengths were equal. An examination of the knee demonstrated no laxity wit h varus, valgus, anterior-posterior stress, negative Adan's and there was no effusion or crepitus with range of motion. /[id number]/MODL
[2017-12-11] MEDS: ENOXAPARIN 40 MG/0.4 ML SYR SC SCH (08:01)
[2017-12-11] MEDS: POLYETHYLENE GLYCOL 3350 17 GM PKT PO SCH (08:03)
[2017-12-11] MEDS: PANTOPRAZOLE SODIUM 40 MG TAB PO SCH (08:04)
[2017-12-11] MEDS: TAMSULOSIN HCL 0.4 MG CAP PO SCH (08:05)
[2017-12-11] MEDS: azaTHIOprine 50 MG TAB PO SCH ×2 (08:05→16:38)
[2017-12-11] MEDS: ACETAMINOPHEN 325 MG TAB PO PRN (08:06)
[2017-12-11] MEDS: SENNOSIDES 1 TAB PO PRN (08:06)
[2017-12-11] MEDS: metFORMIN HCL 500 MG TAB PO SCH ×2 (08:07→16:39)
[2017-12-11] MEDS: ATORVASTATIN CALCIUM 20 MG TAB PO SCH (08:07)
[2017-12-11] MEDS: INSULIN GLARGINE 100 UNITS/ML UNIT SC SCH (08:43)
[2017-12-11] MEDS: INSULIN LISPRO 100 UNIT/ML SC SCH ×3 (08:43→16:37)
[2017-12-11] MEDS ORDERED: BISACODYL 10 MG SUPP PR PRN (09:42)
[2017-12-11] MEDS ORDERED: LACTULOSE 20 GM/30 ML UDCUP PO PRN (09:42)
[2017-12-11] MEDS ORDERED: POLYETHYLENE GLYCOL 3350 17 GM PKT PO PRN (09:42)
[2017-12-11] MEDS ORDERED: MAGNESIUM HYDROXIDE 30 ML UDCUP PO PRN (09:42)
--- NOTE | 2017-12-11 11:23 | SOAPPROG ---
SOAP Progress Note Assessment/Plan: Assessment: s/p im nail for left intertroch fx Plan:mobilize with pt/ot dvt precautions, ok to anticoagulate may need snf TDWB only, rom as asya xrays with mild displacement at fx site will obtain new xrays of femur and knee ok for snf 2 weeks lovenox 2 week f/u 12/09/17 07:41 12/10/17 06:51 12/11/17 11:22 Subjective: doing well mild pain currently Objective: Vital Signs Temp Pulse Resp BP Pulse Ox 36.7 C 69 16 125/67 H 93 12/11/17 07:35 12/11/17 07:35 12/11/17 07:35 12/11/17 07:35 12/11/17 07:35 Laboratory Results 12/10/17 04:25 12/09/17 04:52 12/10/17 12/11/17 12/12/17 05:59 05:59 05:59 Intake Total 500 800 Output Total 1000 1400 525 Balance -500 -600 -525 PT 14.0 SEC (12.0-15.0) 12/08/17 05:23 INR 1.06 (0.83-1.16) 12/08/17 05:23 dressing intact intact pf, df, ehl toes warm and pink neg homans marjorie repeat xrays stable arthritis to knee no acute fx to knee ICD10 Worksheet Patient Problems: Problems Problem Status Onset Fracture, intertrochanteric, left femur Acute Myasthenia gravis Acute
[2017-12-11] MEDS: NON-FORMULARY NEW DRUG (Mirabegron [Myrbetriq] 25 MG) PO SCH (11:25)
--- NOTE | 2017-12-11 11:49 | PDIAF ---
- Diagnosis Diagnosis: Left hip fracture s/p repair, parkinsons Code Status: Full Code - Medication Management Discharge Medications: Medications to Continue on Transfer Aspirin EC [Aspirin EC 81 mg (*)] 81 mg PO DAILY 12/07/17 [Last Taken 12/07/17] Calcium Carb W/Vit D [Calcium Carb W/Vit D 500/200 (*)] 500 mg PO HS 12/07/17 [ Last Taken 12/06/17] Herbals/Supplements -Info Only 1 ea PO DAILY 12/07/17 [Last Taken Unknown] Insulin Lispro [Humalog Kwikpen U-100] 0 unit SQ TIDMEAL 12/07/17 [Last Taken ] Levothyroxine [Synthroid 150 mcg (*)] 150 mcg PO DAILY@07 12/07/17 [Last Taken 12/07/17] Mirabegron [Myrbetriq] 25 mg PO DAILY 12/07/17 [Last Taken 12/07/17] Multivitamins [Multivitamin (*)] 1 each PO HS 12/07/17 [Last Taken 12/06/17] Braggadocio-3 Fatty Acids [Fish Oil 1000 mg (*)] 1,000 mg PO HS 12/07/17 [Last Taken 12/06/17] Omeprazole Magnesium 20 mg PO BID 12/07/17 [Last Taken 12/07/17 09:00] Simvastatin [Zocor] 40 mg PO DAILY 12/07/17 [Last Taken 12/07/17] Tamsulosin HCl [Flomax 0.4 MG (*)] 0.4 mg PO DAILY@1830 12/07/17 [Last Taken ] azaTHIOprine [Imuran 50 mg (*)] 150 mg PO DAILY 12/07/17 [Last Taken 12/07/17] metFORMIN HCL [Glucophage 500 mg (*)] 500 mg PO BIDMEAL 12/07/17 [Last Taken 09:00] Enoxaparin [Lovenox 40 MG (*)] 40 mg SC DAILY #14 syr 12/11/17 [Last Taken Unknown] Hydrocodone/APAP 5/325 [Balsam 5/325 (*)] 1 - 2 tab PO Q6H PRN #20 tab 12/11/17 [ Last Taken Unknown] Insulin Glargine [Lantus 100 UNITS/ML (*)] 16 units SC BID #30 ml 12/11/17 [ Last Taken Unknown] Polyethylene Glycol 3350 [Miralax 17 gm (*)] 17 gm PO DAILY PRN pkt 12/11/17 [ Last Taken Unknown] Sennosides/Docusate Sodium [Senokot-S] 1 - 2 tab PO BID tab 12/11/17 [Last Taken Unknown] Discharge Medications: Refer to the Discharge Home Medication list for PRN reason. PICC Care - Routine: N/A - Orders Services needed: Registered Nurse, Physical Therapy, Occupational Therapy Diet Recommendation: ADA 1800 consistent carb Diet Texture: Regular Texture Diet Additional Instructions: tdwb with assistive device fall precautions daily dressing changes may shower without bandage no soaking or immersion f/u at two [place] [facility] [place] [facility] - Follow Up Care Current Providers and Referrals: Patient,NotPresent [Unknown] - As per Instructions Chu Fuentes MD [Medical Doctor] -
[2017-12-11] MEDS ORDERED: BISACODYL 10 MG SUPP PR ONE ×2 (14:52→15:00)
[2017-12-11 16:17] VITALS: BP 117/65
--- NOTE | 2017-12-11 16:26 | ASMTCMCOM ---
CM Note CM Note Notes: Pt medically stable for d/c to [facility]. [facility] scheduled wc transport for 0. Orders sent in [employer]. KATARINA Latham to call report. Date Signed: 12/11/2017 04:26 PM Electronically Signed By:AMANDA Flowers
[2017-12-11] MEDS ORDERED: SENNOSIDES/DOCUSATE SODIUM TAB PO SCH (21:00)
--- NOTE | 2017-12-12 10:39 | ASDISCHSUM ---
Discharge Information Plan Status:SNF Medically Cleared to Leave: Discharge Date:12/11/2017 06:08 PM D/C Disposition:Long Term Facility ADT D/C Disposition:Long Term Facility Projected Discharge Date:12/11/2017 11:00 AM Transportation at D/C:Wheelchair Van Discharge Delay Reason: Follow-Up Date:12/11/2017 11:00 AM Discharge Slot: Final Diagnosis: Placement Information Referral Type:*Assisted/SNF Referral ID:[id number] Provider Name:[facility] Address 1:[address] Address 2: City:[place] Selection Factors: State:[place] Patient Contact Information Contact Name:ISIDRA Relationship: Address:[address] City:[place] Alternate Phone: State/Zip Code:[place] [address] Email: Financial Information Financial Class:Medicare Advantage Plans Primary Plan Desc:[facility] Primary Plan Number:[id number] Secondary Plan Desc: Secondary Plan Number: Assessment Information [facility] CM Progress Note CM Note CM Note Notes: Chart reviewed. 72 tear old male s/p femur fracture had surgery pending at 1pm. The had called [employer] who told her that the surgeon was not covered under plan despite an emergent admission and fracture, Call placed to Dr. Fuentes and our insurance financial services Angela. Per Angela likely to be covered under emergent care. Patient's recalled insurance for verification purposes and was told again that they would need to find an in network provider or be faced with payment . Our director investor relations spent nearly 2 hours on the phone with [employer] ([employer]) to ascertain coverage. Per Tiffanie Waldron Resident Programs Assistant of escalation cases stated due to the nature of the emergency that they will provide coverage as if the services were in network regardless of where the patient is located. The patient's Erika is greatly relieved. Dr. Fuentes notified of this information and will proceed with emergent surgical intervention within the hour. This CM had also placed a call to [facility] on behalf of the to present the possibility of need for other orthopedic service and Wilfredo Briscoe responded. He asked that Dr. Fuentes page him if we were unable to find resolution to conflict. CM to follow. Plan: Needs to be determined Date Signed: 12/08/2017 03:08 PM Electronically Signed By:Emily Barraza RN [facility] CM Progress Note CM Note CM Note Notes: Spoke with Cary in OR to clarify questions r/t insurance issues. Informed her of information contained in previous note. She is to relay all pertinent information to Dr. Fuentes who has now scheduled patient's surgery for 5:30 pm. CM to follow. Date Signed: 12/08/2017 04:06 PM Electronically Signed By:Emily Barraza RN [facility] CM Progress Note CM Note CM Note Notes: PT rec HHC and 24 hr supervision. Pt reports his will be able to provide supervision and does not know if he wants HHC. Pt will discuss with and CM to meet with pt tomorrow. Date Signed: 12/09/2017 03:42 PM Electronically Signed By:AMANDA Flowers [facility] CM Progress Note CM Note CM Note Notes: Today PT rec SNF, spoke w pt and who are agreeable and interested in at least seeing who has bed availability. Referrals sent to [facility] and [facility] per pt request. CM to follow. Date Signed: 12/10/2017 02:23 PM Electronically Signed By:AMANDA Flowers [facility] CM Progress Note CM Note CM Note Notes: Pt medically stable for d/c to [facility]. [facility] scheduled wc transport for 1729. Orders sent in [employer]. KATARINA Latham to call report. Date Signed: 12/11/2017 04:26 PM Electronically Signed By:AMANDA Flowers Intervention Information Intervention Type:*IM-Signed Date of Service:12/11/2017 01:45 PM Patient Type:Inpatient Staff Member:Jennifer Borges Hours: Discipline: Severity: Comment:
== END 2017-12-11 18:08 | DRG 482 ==
LOC: EDUNIT# → F3N 17:39
PROVIDERS: ADMIT Internal Medicine; ATTEND Hospitalist
PROC: 0QS706Z Reposition Left Upper Femur with Intramedullary Internal Fixation Device, Open Approach (ICD-10-PCS; principal; 2017-12-08 13:45)
DX: S72.142A Displaced intertrochanteric fracture of left femur, initial encounter for closed fracture (principal); E11.65 Type 2 diabetes mellitus with hyperglycemia; G70.00 Myasthenia gravis without (acute) exacerbation; E03.9 Hypothyroidism, unspecified; E78.5 Hyperlipidemia, unspecified; G20 Parkinson's disease; W01.0XXA Fall on same level from slipping, tripping and stumbling without subsequent striking against object, initial encounter; Y92.019 Unspecified place in single-family (private) house as the place of occurrence of the external cause; Z79.84 Long term (current) use of oral hypoglycemic drugs; Z79.4 Long term (current) use of insulin
CPT/HCPCS: 97116-GP; 97161-GP; 97166-GO; 97530-GP; 97535-GO; C1713; G8978-GP-CK; G8979-GP-CI; G8987-GO-CL; G8988-GO-CJ; J0690; J1100; J1170; J1650; J1815; J2060; J2270; J2370; J2405; J2704; J3010; J7500

== ENCOUNTER → 2017-12-22 | Outpatient (CLI) | payer OTHER | LOC: BMCIMAGING 10:31 | PROVIDERS: ATTEND Physician Assistant | DX: S72.142D Displaced intertrochanteric fracture of left femur, subsequent encounter for closed fracture with routine healing (principal) ==

== ENCOUNTER → 2018-01-19 | Outpatient (CLI) | payer OTHER | LOC: BMCIMAGING 08:06 | PROVIDERS: ATTEND Physician Assistant | DX: S72.142D Displaced intertrochanteric fracture of left femur, subsequent encounter for closed fracture with routine healing (principal) ==

== ENCOUNTER → 2018-03-03 | Outpatient (CLI) | payer OTHER | LOC: BMCIMAGING 08:59 | PROVIDERS: ATTEND Orthopaedic Surgery | DX: S72.142D Displaced intertrochanteric fracture of left femur, subsequent encounter for closed fracture with routine healing (principal) ==

== ENCOUNTER → 2018-04-30 | Outpatient (CLI) | payer OTHER | LOC: BMCIMAGING 08:00 | PROVIDERS: ATTEND Physician Assistant | DX: S72.142D Displaced intertrochanteric fracture of left femur, subsequent encounter for closed fracture with routine healing (principal) ==

== ENCOUNTER → 2018-06-04 | Outpatient (CLI) | payer OTHER | LOC: FIMAGING 12:41 | PROVIDERS: ATTEND Nurse Practitioner Adult Health | DX: R10.9 Unspecified abdominal pain (principal); Z98.890 Other specified postprocedural states | CPT/HCPCS: 78226; A9537 ==

== ENCOUNTER → 2018-06-15 | Outpatient (CLI) | payer OTHER | LOC: FIMAGING 10:10 | PROVIDERS: ATTEND Internal Medicine | DX: R74.8 Abnormal levels of other serum enzymes (principal); K83.9 Disease of biliary tract, unspecified; Z90.49 Acquired absence of other specified parts of digestive tract ==